=== PATIENT | female | born 1995 | race American Indian/Alaskan Native ===

== ENCOUNTER 2018-12-31 23:07 | Emergency (ER) | payer MEDICAID ==
--- NOTE | 2019-01-01 00:30 | Emergency Department Report ---
ED Female HPI - General Chief complaint: Urogenital-Female Stated complaint: VAGINAL INFECTION Time Seen by Provider: 01/01/19 00:23 Source: patient Mode of arrival: Ambulatory Limitations: No Limitations - History of Present Illness Initial comments: 3-year-old female presents to the emergency room for vaginal discharge with spotting 4 days in vaginal odor for one week. Patient reports that she is but does not know when the last menstrual period was she thinks maybe beginning of October. Patient comes in with alcoholic beverage to the exam room reports that she did not have anything else to drink to take her ibuprofen. Patient complains of lower abdominal pain. Patient denies any fever or chills or nausea no vomiting. -: days(s) (4 vaginal spotting), week(s) (1 vaginal discharge with odor) Consistency: intermittent Improves with: none Worsens with: none Are you Now?: Yes Last Menstrual Period: 10/01/18 EDC: 07/08/19 Associated Symptoms: vaginal discharge, vaginal bleeding, abdominal pain - Related Data Sexually active: Yes : 3 Para: 1 A: 1 Previous Rx's Medication Instructions Recorded Last Taken Type metroNIDAZOLE [Flagyl] 500 mg PO Q12HR 7 Days #14 tab 01/01/19 Unknown Rx Allergies Allergy/AdvReac Type Severity Reaction Status Date / Time No Known Allergies Allergy Unverified 12/31/18 23:26 ED Review of Systems ROS: Stated complaint: VAGINAL INFECTION Other details as noted in HPI ED Past Medical Hx - Past Medical History Previous Medical History?: Yes Hx Psychiatric Treatment: Yes (panic disorder) - Surgical History Past Surgical History?: No - Social History Smoking Status: Never Smoker - Medications Home Medications: Home Medications Medication Instructions Recorded Confirmed Last Taken Type metroNIDAZOLE [Flagyl] 500 mg PO Q12HR 7 Days #14 tab 01/01/19 Unknown Rx ED Physical Exam - General Limitations: No Limitations General appearance: alert, in no apparent distress - Head Head exam: Present: atraumatic, normocephalic - Eye Eye exam: Present: EOMI - ENT ENT exam: Present: mucous membranes moist - Neck Neck exam: Present: normal inspection - Respiratory Respiratory exam: Present: normal lung sounds bilaterally. Absent: respiratory distress - Cardiovascular Cardiovascular Exam: Present: regular rate, normal rhythm. Absent: systolic murmur, diastolic murmur, rubs, gallop - GI/Abdominal GI/Abdominal exam: Present: soft, normal bowel sounds - External exam: Present: normal external exam Speculum exam: Present: vaginal discharge Bi-manual exam: Present: normal bi-manual exam - Extremities Exam Extremities exam: Present: normal inspection, full ROM - Back Exam Back exam: Present: normal inspection - Neurological Exam Neurological exam: Present: alert, oriented X3 - Psychiatric Psychiatric exam: Present: normal affect, normal mood - Skin Skin exam: Present: warm, dry, intact, normal color. Absent: rash ED Course Vital Signs 12/31/18 23:28 Temperature 98.7 F Pulse Rate 86 Respiratory 12 Rate Blood Pressure 120/77 O2 Sat by Pulse 100 Oximetry ED Medical Decision Making - Radiology Data Radiology results: report reviewed FINAL REPORT EXAM: US OB lt; = 14 WEEKS FETUS HISTORY: abd pain and + preg TECHNIQUE: Transabdominal imaging was obtained the pelvis. FINDINGS: The uterus measures 7.9 cm x 4.1 cm x 5 cm. Within the uterus is a sac-like structure measuring 10.1 mm in diameter corresponding to a 5 week 5 day . A discrete pole or yolk sac is not seen. The ovaries are normal size contour and echotexture. The right ovary measures 2.3 cm x 1.7 cm x 1.6 cm. The left ovary measures 1.7 cm x 1.2 cm x 1.5 cm. There is a very small amount of free fluid in the right adnexal area. IMPRESSION: Intrauterine sac-like structure without identifiable pole or yolk sac. Follow-up imaging is recommended to confirm a viable IUP versus demise. Normal-appearing ovaries. Minimal free fluid in the right adnexal area. Transcribed By: RB Dictated By: SASKIA MYERS MD Electronically Authenticated By: SASKIA MYERS MD Signed Date/Time: 01/01/19405 DD/ 3 TD/TT: 01/01/19403 - Medical Decision Making Patient has been evaluated by this provider in fast track. Wet prep and GC chlamydia was sent to lab. HCG quantitative and OB ultrasound ordered. Gestational sac with identifiable without pole identified. Radiology recommends for patient to have follow-up studies. Discussed patient she needs to have a follow-up ultrasound in 2 weeks. Patient needs to have hCG quantitative within the next 2 days up to 5 days. Patient's wet prep came back positive for bacteria vaginosis. Patient be treated with Flagyl 500 mg by mouth twice a day for 7 days. Patient be referred to OB. Critical care attestation.: If time is entered above; I have spent that time in minutes in the direct care of this critically ill patient, excluding procedure time. ED Disposition Clinical Impression: BV (bacterial vaginosis) Qualifiers: Weeks of gestation: less than 8 weeks Qualified Code(s): Z3A.01 - Less than 8 weeks gestation of Disposition: DC- TO HOME OR SELFCARE Is pt being admited?: No Does the pt Need Aspirin: No Condition: Stable Instructions: Bacterial Vaginosis (ED) Additional Instructions: Please follow up OB or emergency room for repeat hCG in 2 weeks to 5 days. You need to have a repeat ultrasound in 2 weeks either from OB or emergency room. Please take an complete beer antibiotics for your vaginal infection. You can return to medical records and 7 days to obtain the results from your gonorrhea and chlamydia test. Take Tylenol only for pain. You can get [id number] vitamins. Prescriptions: metroNIDAZOLE [Flagyl] 500 mg PO Q12HR 7 Days #14 tab Referrals: [facility] [Provider Group] - 3-5 Days [facility] [Provider Group] - 3-5 Days Forms: STI Treatment and Prevention, Work/School Release Form(ED)
[2019-01-01 02:08] LABS: Amorphous Crystals,Urine 1+; Bacteria,Urine 1+ /HPF (Negative); Bilirubin,Urine NEG (Negative); Blood,Urine MOD (Negative); Color,Urine Yellow (Yellow); Protein,Urine <15 mg/dL mg/dL (Negative)
--- NOTE | 2019-01-01 04:04 | Ultrasound Report ---
FINAL REPORT EXAM: US OB TRANSVAGINAL HISTORY: abd pain and + preg TECHNIQUE: Transvaginal imaging was obtained the pelvis. FINDINGS: The uterus is retroverted measuring 7.9 cm x 4.1 cm x 5 cm. Within the uterus is a sac-like structure measuring 10.1 mm in diameter. This would correspond to a 5 week 5 day . A discrete p ole and yolk sac is not definitely seen at this time. Both ovaries are appropriate size contour and echotexture. The right ovary measures 2.3 cm x 1.7 cm x 1.6 cm. The left ovary measures 1.7 cm x 1.2 cm x 1.5 cm. There is a small amount of free fluid in the right adnexal area. IMPRESSION: Intrauterine sac-like structure without identifiable pole or yolk sac. Follow-up imaging is rec ommended to confirm a viable IUP versus demise. Very small amount of free fluid in the right adnexal area. No evidence of an ectopic otherw ise. Normal-appearing ovaries.
--- NOTE | 2019-01-01 04:06 | Ultrasound Report ---
FINAL REPORT EXAM: US OB <= 14 WEEKS FETUS HISTORY: abd pain and + preg TECHNIQUE: Transabdominal imaging was obtained the pelvis. FINDINGS: The uterus measures 7.9 cm x 4.1 cm x 5 cm. Within the uterus is a sac-like structure measuring 10.1 mm in diameter corresponding to a 5 week 5 day . A discrete pole or yolk sac is not se en. The ovaries are normal size contour and echotexture. The right ovary measures 2.3 cm x 1.7 cm x 1.6 c m. The left ovary measures 1.7 cm x 1.2 cm x 1.5 cm. There is a very small amount of free fluid in th e right adnexal area. IMPRESSION: Intrauterine sac-like structure without identifiable pole or yolk sac. Follow-up imaging is rec ommended to confirm a viable IUP versus demise. Normal-appearing ovaries. Minimal free fluid in the right adnexal area.
[2019-01-01 04:52] VITALS: BP 122/71
== END 2019-01-01 04:18 | disposition home or self-care (01) ==
LOC: ED 23:07
DX: O23.591 Infection of other part of genital tract in pregnancy, first trimester (principal); Z3A.01 Less than 8 weeks gestation of pregnancy
CPT/HCPCS: 36415; 76801; 76817; 81001; 84702; 87210; 87591

== ENCOUNTER 2019-03-12 10:09 | Emergency (ER) | payer MEDICAID ==
[2019-03-12 10:29] VITALS: BP 129/91
[2019-03-12] MEDS ORDERED: BENADRYL IM ONE (11:30)
--- NOTE | 2019-03-12 11:33 | Emergency Department Report ---
ED Anxiety HPI - General Chief Complaint: Anxiety Stated Complaint: PANIC ATTACK/EXHAUSTED Time Seen by Provider: 03/12/19 11:19 Source: patient Mode of arrival: Ambulatory Limitations: No Limitations - History of Present Illness Initial Comments: 23-year-old female with past medical history of panic disorder presents to the hospital with complaints of generalized anxiety and inability to sleep for the past 5 days. Patient has had previous diagnosis of panic disorder and has had ER visits between [facility], and [facility]. She states that in the past she has been treated with a variety of medications including Xanax. She has not had Xanax in several months. Patient complaining of feeling anxious. No pain reported - Related Data Home Medications: Previous Rx's Medication Instructions Recorded Last Taken Type metroNIDAZOLE [Flagyl] 500 mg PO Q12HR 7 Days #14 tab 01/01/19 Unknown Rx hydrOXYzine PAMOATE [Vistaril] 50 mg PO Q6HR PRN #20 capsule 03/12/19 Unknown Rx Allergies/Adverse Reactions: Allergies Allergy/AdvReac Type Severity Reaction Status Date / Time No Known Allergies Allergy Verified 03/12/19 10:09 ED Review of Systems ROS: Stated complaint: PANIC ATTACK/EXHAUSTED Other details as noted in HPI Comment: All other systems reviewed and negative ED Past Medical Hx - Past Medical History Previous Medical History?: Yes Hx Psychiatric Treatment: Yes (panic disorder) - Surgical History Past Surgical History?: No - Social History Smoking Status: Current Every Day Smoker Substance Use Type: None - Medications Home Medications: Home Medications Medication Instructions Recorded Confirmed Last Taken Type metroNIDAZOLE [Flagyl] 500 mg PO Q12HR 7 Days #14 tab 01/01/19 Unknown Rx hydrOXYzine PAMOATE [Vistaril] 50 mg PO Q6HR PRN #20 capsule 03/12/19 Unknown Rx ED Physical Exam - General Limitations: No Limitations - Other Other exam information: General: No limitations, patient is alert in no acute distress Head exam: Atraumatic, normocephalic Eyes exam: Normal appearance, pupils equal reactive to light, extraocular movements intact ENT: Moist mucous membrane Neck exam: Normal inspection, full range of motion, no meningismus nontender Respiratory exam: Clear to auscultation bilateral, no wheezes, rales, crackles Cardiovascular: Normal rate and rhythm, normal heart sounds Abdomen: Soft, nondistended, and nontender, with normal bowel sounds, no rebound, or guarding Extremity: Full range of motion normal inspection no deformity Back: Normal Inspection, full range of motion, no tenderness Neurologic: Alert, oriented x3, cranial nerves intact, no motor or sensory deficit Psychiatric: Anxious Skin: Warm, dry, intact ED Course Vital Signs 03/12/19 10:21 Temperature 98.0 F Pulse Rate 74 Respiratory 16 Rate Blood Pressure 129/91 O2 Sat by Pulse 99 Oximetry ED Medical Decision Making - Medical Decision Making LABS ORDERED BUT DECLINED BY PT GIVEN BENADRYL 50MG IM IN ED UA, UDS, UPT REVIEWED WILL D/C WITH [facility] AND PSYCH F/U - Differential Diagnosis anxiety, thyroid, depression, insomnia Critical Care Time: No Critical care attestation.: If time is entered above; I have spent that time in minutes in the direct care of this critically ill patient, excluding procedure time. ED Disposition Clinical Impression: Anxiety, Insomnia Disposition: DC-01 TO HOME OR SELFCARE Is pt being admited?: No Does the pt Need Aspirin: No Condition: Stable Instructions: Anxiety (ED), Insomnia (ED) Additional Instructions: Take the medication as prescribed. Follow up with your doctor or the clinic/doctor provided. Return if symptoms worsen as indicated by your discharge instructions Prescriptions: hydrOXYzine PAMOATE [Vistaril] 50 mg PO Q6HR PRN #20 capsule PRN Reason: Anxiety Referrals: [facility] [Outside] - 3-5 Days MD ESTELLE [Other] - 3-5 Days WINAMAC RAÚLCRISTIAN ABARCA MD [Primary Care Provider] - 3-5 Days (Primary care clinic) ISAIAS TORRES MD [Staff Physician] - 3-5 Days (Primary care doctor) Time of Disposition: 13:04
[2019-03-12 12:17] LABS: Bilirubin,Urine NEG (Negative); Blood,Urine NEG (Negative); Color,Urine Yellow (Yellow); Mucus,Urine 3+ /HPF
[2019-03-12 12:23] LABS: Amphetamine Screen,Urine PRESUMPTIVE NEGATIVE; Benzodiazepines Screen,Urine PRESUMPTIVE NEGATIVE; Cannabinoid Screen,Urine PRESUMPTIVE NEGATIVE; Cocaine Screen,Urine PRESUMPTIVE NEGATIVE; Methadone Screen,Urine PRESUMPTIVE NEGATIVE; Opiate Screen,Urine PRESUMPTIVE NEGATIVE
[2019-03-12 12:37] LABS: HCG Qualitative,Urine Negative (Negative)
== END 2019-03-12 13:15 | disposition home or self-care (01) ==
LOC: ED 10:09
DX: F41.9 Anxiety disorder, unspecified (principal); G47.00 Insomnia, unspecified; F17.200 Nicotine dependence, unspecified, uncomplicated
CPT/HCPCS: 80307; 81001; 81025; 96372; 99283; J1200